=== PATIENT | male | born 1950 | race Caucasian/White ===

== ENCOUNTER 2018-04-23 09:47 | Emergency (ER) | payer MEDICARE, OTHER ==
[2018-04-23 10:19] VITALS: BP 153/85
--- NOTE | 2018-04-23 10:34 | ED ---
Throat Pain/Nasal Congestion - HPI Summary HPI Summary: 67 yr old male with the complaint of sinus congestion, coughing, productive yellow sputum. Onset two days ago. No fever. No SOB, no CP. Symptoms are moderate - History of Current Complaint Chief Complaint: UCRespiratory Time Seen by Provider: 04/23/18 10:16 - Allergies/Home Medications Allergies/Adverse Reactions: Allergies Allergy/AdvReac Type Severity Reaction Status Date / Time No Known Allergies Allergy Verified 04/23/18 10:08 Home Medications: Home Medications Albuterol HFA INHALER* [Ventolin HFA Inhaler*] 1 - 2 puff INH Q4H PRN 04/23/18 [ History Confirmed 04/23/18] Atorvastatin* [Lipitor*] 40 mg PO QPM 04/23/18 [History Confirmed 04/23/18] Dm/PE/Acetaminophen/Doxylamine [COLD & FLU MULTI-SYMPTOM (Liquid)] 1 mis PO DAILY PRN 04/23/18 [History Confirmed 04/23/18] PMH/Surg Hx/FS Hx/Imm Hx Cardiovascular History: Reports: Hx Hypertension - Surgical History Surgery Procedure, Year, and Place: 2 stents. ankle Infectious Disease History: No Infectious Disease History: Denies: Traveled Outside the [place] in Last 30 Days - Family History Known Family History: Positive: Cardiac Disease - Social History Alcohol Use: Occasionally Substance Use Type: Reports: None Smoking Status (MU): Never Smoked Tobacco Review of Systems Constitutional: Negative Positive: Cough All Other Systems Reviewed And Are Negative: Yes Physical Exam Triage Information Reviewed: Yes Vital Signs On Initial Exam: Initial Vitals Temp Pulse Resp BP Pulse Ox 97.8 F 72 16 153/85 100 04/23/18 10:11 04/23/18 10:11 04/23/18 10:11 04/23/18 10:11 04/23/18 10:11 Vital Signs Reviewed: Yes Appearance: Positive: Well-Appearing, No Pain Distress Skin: Positive: Warm, Skin Color Reflects Adequate Perfusion Head/Face: Positive: Normal Head/Face Inspection Eyes: Positive: EOMI ENT: Positive: Pharynx normal, TM red - right Neck: Positive: Nontender Respiratory/Lung Sounds: Positive: Clear to Auscultation, Breath Sounds Present Cardiovascular: Positive: RRR. Negative: Murmur Abdomen Description: Negative: Distended Musculoskeletal: Positive: Strength/ROM Intact Neurological: Positive: Sensory/Motor Intact, Alert, Oriented to Person Place, Time, CN Intact II-III Psychiatric: Positive: Normal Diagnostics - Vital Signs Vital Signs Temp Pulse Resp BP Pulse Ox 04/23/18 10:11 97.8 F 72 16 153/85 100 - Laboratory Lab Statement: Any lab studies that have been ordered have been reviewed, and results considered in the medical decision making process. EENT Course/Dx - Course Course Of Treatment: 67 yr old with URI and redness to right ear. Plan DC home on cefdinir - Diagnoses Provider Diagnoses: Otitis media, Upper respiratory infection Discharge - Sign-Out/Discharge Documenting (check all that apply): Patient Departure All imaging exams completed and their final reports reviewed: No Studies - Discharge Plan Condition: Good Disposition: HOME Prescriptions: Cefdinir cap (NF) [Cefdinir 300 MG cap (NF)] 300 mg PO BID #20 cap Patient Education Materials: Ear Infection (ED), Upper Respiratory Infection ( ED), Hypertension (ED) Referrals: No Primary Care Phys,NOPCP [Primary Care Provider] - [facility] [place] [facility] [place]] - 2 Days Additional Instructions: Be sure to follow up with doctor for elevated blood pressure. - Billing Disposition and Condition Condition: GOOD Disposition: Home
== END 2018-04-23 10:40 | disposition home or self-care (01) ==
LOC: UCCORT 09:47
DX: J06.9 Acute upper respiratory infection, unspecified (principal); H66.91 Otitis media, unspecified, right ear
CPT/HCPCS: 99202; G0463